=== PATIENT | male | born 2000 | race Caucasian/White ===

== ENCOUNTER 2023-01-31 08:36 | Outpatient (CLI) | payer OTHER, SELFPAY ==
[2023-01-31 09:21] LABS: Basophils Absolute Auto 0.1 K/mm3 (0.0-0.1); Basophils Percent Auto 0.8 % (0.2-1.2); Eosinophils Absolute Auto 0.1 K/mm3 (0-0.3); Eosinophils Percent Auto 1.1 % (0-4.4); Hematocrit 45.7 % (42.0-52.0); Hemoglobin 15.5 g/dL (14.0-18.0); Immature Granulocyte Absolute 0.02 K/mm3 (0.00-0.031); Immature Granulocyte Percent A 0.3 % (0-0.5); Lymphocytes Absolute Auto 2.52 K/mm3 (0.9-3.2); Lymphocytes Percent Auto 40.8 % (18.3-44.2); Mean Corpuscular HGB Conc 33.9 g/dl (32-36); Mean Corpuscular Hemoglobin 29.3 pg (26-34); Mean Corpuscular Volume 86.4 fl (80-100); Mean Platelet Volume 8.5 fl (7.4-10.4); Monocytes Absolute Auto 0.6 K/mm3 (0.1-0.6); Monocytes Percent Auto 8.9 % (2.6-8.5); Neutrophils Percent Auto 48.1 % (45.5-73.1); Platelet Count Result 224 k/mm3 (150-375); Red Blood Count 5.29 M/mm3 (4.6-6.20); White Blood Count 6.2 K/mm3 (4.5-10.0)
[2023-01-31 09:34] LABS: Alanine Aminotransferase 19 U/L (6-50); Albumin Level 5.2 g/dL (3.5-5.1); Alkaline Phosphatase 58 U/L (38-126); Anion Gap 7 mmol/L (8-16); Aspartate Amino Transferase 25 U/L (17-59); Bilirubin,Total 1.6 mg/dL (0.2-1.3); Blood Urea Nitrogen 11 mg/dL (9-20); Calcium 9.8 mg/dL (8.4-10.2); Carbon Dioxide 31 mmol/L (22-30); Chloride 100 mmol/L (98-107); Cholesterol 148 mg/dL (0-200); Estimated Glomerular Filt Rate > 60; Glucose 103 mg/dL (65-110); HDL Direct 44 mg/dL; Potassium 4.6 mmol/L (3.4-5.0); Sodium 138 mmol/L (137-145); Triglycerides 93 mg/dL (<150)
[2023-01-31 09:48] LABS: LDL Cholesterol Direct 84 mg/dL
== END 2023-01-31 08:37 | disposition home or self-care (01) ==
PROVIDERS: Family Medicine
DX: F41.1 Generalized anxiety disorder (principal); Z13.220 Encounter for screening for lipoid disorders; Z78.9 Other specified health status
CPT/HCPCS: 36415; 80053; 80061; 82607; 84443; 85025

== ENCOUNTER 2024-01-01 12:33 | Emergency (ER) | payer OTHER, SELFPAY ==
--- NOTE | ~2024-01-01 | US_ITS ---
EXAMINATION: US scrotum doppler DATE: 01/01/2024 14:45 INDICATION: Testicular pain. TECHNIQUE: Grayscale and Doppler ultrasound images of the testes were obtained. COMPARISON: None. FINDINGS: The right testis measures 5.5 x 2.6 x 3.0 cm. The left testis measures 4.9 x 2.3 x 3.0 cm. There is normal vascular flow to both testes. The right epididymis is normal with normal vascular jacki w. The left epididymis is normal with normal vascular flow. There is no varicocele or hydrocele. IMPRESSION: 1. Normal testes. Reviewed, dictated and finalized at location A. IMPRESSION: 1. Normal testes.
[2024-01-01 12:35] VITALS: BP 134/76; PULSE 82; RESP 16; TEMP 36.5; O2SAT 100
--- NOTE | 2024-01-01 15:41 | ED.GENADULT ---
HPI - General Adult General Chief complaint: Urogenital-Male Stated complaint: testicular pain Time Seen by Provider: 01/01/24 15:40 Source: patient Mode of arrival: ambulatory Limitations: no limitations History of Present Illness HPI narrative: PATIENT IS 23 YEARS OLD WHITE MALE DROVE HIMSELF TO THE EMERGENCY ROOM COMPLAINING OF CHRONIC PAIN AT THE TESTICLE SINCE JANUARY 2023. MAINLY ON THE RIGHT SIDE. RECENT WORKUP FOR URINARY TRACT INFECTION AND IS TI CAME BACK NEGATIVE. PATIENT DENIES ANY FEVER, CHILLS, NAUSEA, VOMITING, TESTICULAR TRAUMA OR PENILE DISCHARGE. Related Data Allergies Allergy/AdvReac Type Severity Reaction Status Date / Time cephalexin AdvReac Rash Verified 01/01/24 13:19 Review of Systems Review of Systems: All systems reviewed & are unremarkable except as noted in HPI and below Exam Narrative: GENERAL APPEARANCE: WELL-DEVELOPED, WELL-NOURISHED SKIN: NORMAL COLOR HEAD: NORMOCEPHALIC, NONTRAUMATIC EYES: CLEAR CONJUNCTIVA ENT: OROPHARYNX NORMAL, EARS NORMAL, NOSE NORMAL NECK: SUPPLE, NONTENDER CHEST AND RESPIRATORY: AIRWAY PATENT, NO RESPIRATORY DISTRESS, NO ACCESSORY MUSCLE USE HEART: REGULAR RATE/RHYTHM ABDOMEN: SOFT, NONTENDER, NO ORGANOMEGALY, QUIET BOWEL SOUNDS VASCULAR: NORMAL PERIPHERAL PULSES, NORMAL CAPILLARY REFILL. MUSCULOSKELETAL: NORMAL RANGE OF MOTION, NONTENDER BACK NEUROLOGIC: ALERT AND ORIENTED ?3, SECURITY SERVICES MANAGER IS NORMAL TESTED, NO GROSS MOTOR DEFICIT Course Vital Signs Vital signs: Vital Signs Temperature 36.5 C 01/01/24 12:35 Pulse Rate 82 01/01/24 12:35 Respiratory Rate 16 01/01/24 12:35 Blood Pressure 134/76 01/01/24 12:35 Pulse Oximetry 100 01/01/24 12:35 Oxygen Delivery Room Air 01/01/24 12:35 Temperature 36.5 C 01/01/24 12:35 Pulse Rate 82 01/01/24 12:35 Respiratory Rate 16 01/01/24 12:35 Blood Pressure 134/76 01/01/24 12:35 Pulse Oximetry 100 01/01/24 12:35 Oxygen Delivery Room Air 01/01/24 12:35 Medical Decision Making MDM Narrative Medical decision making narrative: PATIENT PRESENTED WITH CHRONIC TESTICULAR PAIN SINCE JANUARY 2023. PHYSICAL EXAMINATION IS UNREMARKABLE. TESTICULAR ULTRASOUND SHOWED NO ACUTE ABNORMALITIES, URINALYSIS WITHIN NORMAL LIMIT. PATIENT IS SCHEDULED TO SEE HIS UROLOGIST TOMORROW. Differential Diagnosis Differential Diagnosis: TESTICULAR PAIN SECONDARY TO VARICOCELE, HYDROCELE, TUMOR, EPIDIDYMITIS Medical Records Medical records reviewed: Yes I reviewed the external patient's medical records. Vital Signs Vital Signs: Vital Signs Temperature 36.5 C 01/01/24 12:35 Pulse Rate 82 01/01/24 12:35 Respiratory Rate 16 01/01/24 12:35 Blood Pressure 134/76 01/01/24 12:35 Pulse Oximetry 100 01/01/24 12:35 Oxygen Delivery Room Air 01/01/24 12:35 Temperature 36.5 C 01/01/24 12:35 Pulse Rate 82 01/01/24 12:35 Respiratory Rate 16 01/01/24 12:35 Blood Pressure 134/76 01/01/24 12:35 Pulse Oximetry 100 01/01/24 12:35 Oxygen Delivery Room Air 01/01/24 12:35 Lab Data Labs: Lab Results 01/01/24 Range/Units 16:09 Urine Color Yellow (Yellow) Urine Appearance Clear (Clear) Urine pH 5.5 (5.0-9.0) Ur Specific Corn 1.028 (1.001-1.035) Urine Protein Negative (Negative) mg/dL Urine Glucose (UA) Negative (Negative) mg/dL Urine Ketones 3+ H (Negative) mg/dL Ur Blood (Man) Negative (Negative) Urine Nitrate Negative (Negative) Urine Bilirubin Negative (Negative) Urine Urobilinogen 1.0 (<2.0) mg/dL Leukocyte Esterase Rfl Negative (Negative) JASMINE/UL Imaging Data Radiologist's impression: Impressions Scrotum Ultrasound
[2024-01-01 16:17] LABS: Add Urine Microscopic? NO; Appearance Urine Clear (Clear); Bilirubin Urine Negative (Negative); Blood Urine Negative (Negative); Color Urine Yellow (Yellow); Glucose Urine UA Negative (Negative); Ketones Urine 3+ mg/dL (Negative); Leukocyte Esterase Ur Negative LEU/UL (Negative); Nitrate Urine Negative (Negative); Protein Urine Negative (Negative); Specific Grav Ur 1.028 (1.001-1.035); pH Urine 5.5 (5.0-9.0)
== END 2024-01-01 17:38 | disposition home or self-care (01) ==
PROVIDERS: Emergency Provider Emergency Medicine; PCP Family Medicine
DX: N50.811 Right testicular pain (principal); G89.29 Other chronic pain
CPT/HCPCS: 76870; 81003; 93976; 99284

== ENCOUNTER 2024-02-19 07:26 | Outpatient (CLI) | payer OTHER, SELFPAY ==
[2024-02-19 08:30] LABS: Hemoglobin A1C 5.1 % (<5.7)
[2024-02-21 06:33] LABS: Prolactin 8.8 ng/mL (2.0-18.0)
[2024-02-23 01:04] LABS: Testosterone Total 392 ng/dL (250-1100)
[2024-02-29 01:49] LABS: Estradiol, Ultrasensitive 17 pg/mL (< OR = 29)
== END 2024-02-19 07:27 | disposition home or self-care (01) ==
LOC: ANHLAB 07:33
PROVIDERS: PCP Family Medicine; Visit Provider Nurse Practitioner
DX: F52.32 Male orgasmic disorder (principal)
CPT/HCPCS: 36415; 82670; 83036; 84146; 84403